=== PATIENT | female | born 1995 | race Two or more races ===

== ENCOUNTER 2018-03-04 21:37 | Inpatient (IN) | payer MEDICAID ==
[~2018-03-04] VITALS: Ht 162.6 cm; Wt 69.9 kg
[2018-03-04 23:49] LABS: BASOPHILS % 0.5 % (0.0-2.0); EOSINOPHILS % 3.6 % (0.0-5.0); HEMATOCRIT. 34.8 % (36.0-48.0); HEMOGLOBIN. 11.7 g/dL (12.0-16.0); MEAN CORPUSCULAR HEMOGLOBIN 28.2 pg (28.0-32.0); MEAN CORPUSCULAR VOLUME 83.9 fL (81.0-99.0); MEAN PLATELET VOLUME 9.7 fl (7.4-10.4); MONOCYTES % 7.8 % (2.0-8.0); NEUTROPHILS % 50.1 % (40.0-76.0); PLATELET 369 x1000/uL (130-400); RED BLOOD CELL COUNT 4.15 mill/uL (4.2-5.4); RED CELL DISTRIBUTION WIDTH 14.6 % (11.6-14.6)
[2018-03-04 23:52] LABS: CHLORIDE 105 mEq/L (98-107)
[2018-03-05 00:02] LABS: HCG SCREEN NEGATIVE
[2018-03-05 00:04] LABS: D-DIMER 1.39 mg/L FEU (<0.50); PARTIAL THROMBOPLASTIN TIME 27.4 sec (23.4-31.0); PROTHROMBIN TIME 10.1 sec (9.1-11.1)
[2018-03-05] MEDS ORDERED: ASPIRIN 81MG TABLET PO ONE (00:30)
[2018-03-05] MEDS ORDERED: IOHEXOL-350 100 ML BOTTLE ONE (04:11)
[2018-03-05 05:05] VITALS: BP 139/88
[2018-03-05 08:00] VITALS: BP 105/61
[2018-03-05 12:00] VITALS: BP 105/70
[2018-03-05 12:26] VITALS: BP 105/70
== END 2018-03-05 14:48 | disposition home or self-care (01) | DRG 203 ==
LOC: ER 21:37 → 8WST 03-05 01:43 → ENRESERV 03-05 03:47
PROVIDERS: ADMIT Internal Medicine; ATTEND Internal Medicine
DX: R07.89 Other chest pain (principal); R06.02 Shortness of breath; R79.1 Abnormal coagulation profile; Z83.3 Family history of diabetes mellitus
CPT/HCPCS: 36415; 71045; 71275; 80053; 83880; 84484; 84703; 85025; 85379; 85610; 85730; 93005; 93970; 99285; Q9967

== ENCOUNTER 2019-07-14 19:23 | Emergency (ER) | payer OTHER, MEDICAID ==
[~2019-07-14] VITALS: Ht 162.6 cm; Wt 80.7 kg
[2019-07-14 21:58] VITALS: BP 129/79
[2019-07-14] MEDS ORDERED: KETOROLAC 60MG/2ML VIAL IM ONE (22:00)
== END 2019-07-14 21:58 | disposition home or self-care (01) ==
LOC: ER 19:23
DX: S00.83XA Contusion of other part of head, initial encounter (principal); W01.0XXA Fall on same level from slipping, tripping and stumbling without subsequent striking against object, initial encounter; Y93.89 Activity, other specified; Y92.89 Other specified places as the place of occurrence of the external cause; R03.0 Elevated blood-pressure reading, without diagnosis of hypertension
CPT/HCPCS: 81025; 99282